=== PATIENT | female | born 1955 | race Caucasian/White ===

== ENCOUNTER 2019-11-17 12:17 | Outpatient (CLI) | payer OTHER, SELFPAY ==
--- NOTE | ~2019-11-17 | XR_ITS ---
XR chest 2V DATE: 11/17/2019 13:09 INDICATION: Cough, fever TECHNIQUE: PA and lateral views COMPARISON: None FINDINGS: Normal heart size. No hilar or mediastinal enlargement. Calcified pulmonary granuloma at th e lateral right lung base. No pulmonary infiltrate or consolidation, pleural effusion or pulmonary va scular congestion or pneumothorax. Diffuse idiopathic skeletal hyperostosis of the mid to lower thoracic spine. IMPRESSION: No active cardiopulmonary disease Reviewed, dictated and finalized at location A. OP JAVA DEVELOPER
== END 2019-11-17 12:18 | disposition home or self-care (01) ==
DX: J40 Bronchitis, not specified as acute or chronic (principal)
CPT/HCPCS: 71046

== ENCOUNTER 2020-08-21 12:32 | Emergency (ER) | payer MEDICARE, SELFPAY ==
[2020-08-21] VITALS (9 sets, daily range): BP systolic 105–130; BP diastolic 47–82; PULSE 72–81; RESP 15–20; TEMP 36.8; O2SAT 97–99
--- NOTE | ~2020-08-21 | XR_ITS ---
EXAMINATION: XR chest 2V EXAM DATE: 08/21/2020 13:10 INDICATION: shortness of breath since last evening, HX Copd, emphysema . TECHNIQUE: Frontal and lateral projections of the chest obtained and reviewed. Comparison is made to prior examination from 11/17/2019. FINDINGS: Several calcified granulomata. The lungs are otherwise clear. There are no pleural effusio ns. Cardiac silhouette is prominent but magnified on this AP technique. There is no pneumothorax s uspected. There are bony degenerative changes. IMPRESSION: No acute cardiopulmonary findings. Reviewed, dictated and finalized at location B. RGRADUATE INTERN
--- NOTE | 2020-08-21 12:55 | ECG_ITS ---
Measurements Intervals [place] Rate: 72 P: 39 CO: 171 QRS: -6 QRSD: 80 T: 33 QT: 408 QTc: 448 Interpretive Statements SINUS RHYTHM LOW QRS VOLTAGE IN PRECORDIAL LEADS BASELINE ARTIFACT- I, III, AVL, AVF BORDERLINE ECG Electronically Signed On 08-21-2020 14:08:15 [employer] LIFT TRIMMER by Todd Sullivan D.O.
--- NOTE | 2020-08-21 13:03 | ED.SOB ---
HPI - SOB/Dyspnea General Chief Complaint: Shortness of Breath/Dyspnea Stated Complaint: sob Time Seen by Provider: 08/21/20 12:55 Source: patient History of Present Illness HPI Narrative: 65-year-old female presents to emergency department for shortness of breath that she noticed yesterday. Patient is unsure if she has felt short of breath like this in the past before. She has tried her CPAP machine at home to help. Patient states shortness of breath is worse when laying flat. No fever or chills. No chest pain. No abdominal pain. No nausea or vomiting. Related Data Allergies Allergy/AdvReac Type Severity Reaction Status Date / Time No Known Allergies Allergy Verified 08/21/20 13:18 Review of Systems Review of Systems: Narrative: CONSTITUTIONAL: Denies fever, chills, or sweats. EYES: Denies visual changes, redness, or discharge. ENT: Denies rhinorrhea, congestion, sore throat, or otalgia. CARDIOVASCULAR: Denies chest pain, palpitations, or edema. RESPIRATORY: Reports shortness of breath GASTROINTESTINAL: Denies abdominal pain, nausea, vomiting, or diarrhea. GENITOURINARY: Denies dysuria or hematuria. SKIN: Denies rash or itching. MUSCULOSKELETAL: Denies back pain, joint pain, or myalgia. NEUROLOGIC: Denies headache, numbness, dizziness, or weakness. PSYCHIATRIC: Denies anxiety or depression. All systems reviewed & are unremarkable except as noted in HPI and below (ROS) PMFSH Social History Social History Gender identity (if verbalized by the patient): Female Exam Narrative: Exam Narrative: GENERAL: Well-appearing, well-nourished, and in no acute distress. HEAD: Normocephalic, atraumatic. EYES: PERRLA and EOMI. ENT: Nares clear, no rhinorrhea or epistaxis. Mucous membranes moist. NECK: Supple. CHEST: Clear to auscultation. Decreased breath sounds bilaterally HEART: Regular rate and rhythm. No murmur heard. Normal peripheral pulses. ABDOMEN: Soft, nontender, nondistended, normal active bowel sounds. EXTREMITIES: Normal range of motion. No edema. SKIN: Warm, dry, no rash. NEURO: No focal deficits. Alert and oriented x3. PSYCH: Normal mood and affect. Course Reevaluation(s) Reevaluation #1: 15:50 -reevaluated patient, breathing improved after breathing treatments. Will treat for COPD exacerbation. Counseled patient to follow-up with her medical provider within 1 week. Return to emergency department if symptoms persist, worsen, or other concerns Vital Signs Vital signs: Vital Signs Pulse Rate 75 08/21/20 12:44 Respiratory Rate 20 08/21/20 12:44 Blood Pressure 126/64 08/21/20 12:44 Pulse Oximetry 97 08/21/20 12:44 Temperature 36.8 C 08/21/20 12:55 Pulse Rate 73 08/21/20 16:07 Respiratory Rate 18 08/21/20 16:07 Blood Pressure 105/47 L 08/21/20 16:07 Pulse Oximetry 97 08/21/20 16:07 MDM - SOB/Dyspnea Medical Records Attestation: I reviewed the patient's medical records. Lab Data Attestation: I reviewed the patient's lab results. Result diagrams: 08/21/20 12:57 08/21/20 12:57 Labs: Lab Results 08/21/20 08/21/20 08/21/20 Range/Units 12:57 12:57 12:57 WBC 5.8 (4.5-10.0) K/mm3 RBC 4.74 (4.2-5.4) M/mm3 Hgb 14.5 (12.0-15.0) g/dL Hct 43.0 (37.0-47.0) % MCV 90.7 (80-100) fl MCH 30.6 (26-34) pg MCHC 33.7 (32-36) g/dl RDW 14.5 (11.5-14.5) % Plt Count 101 L (150-375) k/mm3 MPV 11.6 H (7.4-10.4) fl Immature Gran % (Auto) 0.2 (0-0.5) % Neut % (Auto) 72.3 (45.5-73.1) % Lymph % (Auto) 17.6 L (18.3-44.2) % [place] % (Auto) 7.4 (2.6-8.5) % Eos % (Auto) 2.2 (0-4.4) % Baso % (Auto) 0.3 (0.2-1.2) % Lymph # (Auto) 1.02 (0.9-3.2) K/mm3 [place] # (Auto) 0.4 (0.1-0.6) K/mm3 Eos # (Auto) 0.1 (0-0.3) K/mm3 Baso # (Auto) 0.0 (0.0-0.1) K/mm3 Abs Immat Gran (auto) 0.01 (0.00-0.031) K/mm3 Absolute Neuts (auto
[2020-08-21 13:06] LABS: Basophils Percent Auto 0.3 % (0.2-1.2); Eosinophils Absolute Auto 0.1 K/mm3 (0-0.3); Eosinophils Percent Auto 2.2 % (0-4.4); Hemoglobin 14.5 g/dL (12.0-15.0); Immature Granulocyte Absolute 0.01 K/mm3 (0.00-0.031); Immature Granulocyte Percent A 0.2 % (0-0.5); Immature Platelet Fraction Pct 6.5 % (0.9-11.2); Lymphocytes Absolute Auto 1.02 K/mm3 (0.9-3.2); Lymphocytes Percent Auto 17.6 % (18.3-44.2); Mean Corpuscular HGB Conc 33.7 g/dl (32-36); Mean Corpuscular Hemoglobin 30.6 pg (26-34); Mean Corpuscular Volume 90.7 fl (80-100); Mean Platelet Volume 11.6 fl (7.4-10.4); Monocytes Absolute Auto 0.4 K/mm3 (0.1-0.6); Monocytes Percent Auto 7.4 % (2.6-8.5); Neutrophils Absolute Auto 4.2 K/mm3 (1.3-6.7); Neutrophils Percent Auto 72.3 % (45.5-73.1); Platelet Count Result 101 k/mm3 (150-375); Red Blood Count 4.74 M/mm3 (4.2-5.4); Red Cell Distribution Width 14.5 % (11.5-14.5); White Blood Count 5.8 K/mm3 (4.5-10.0)
[2020-08-21] MEDS: ALBUTEROL SULFATE NEB 2.5 MG/0.5 ML INH 5 MG INHALATION (13:17)
[2020-08-21 13:18] LABS: Anion Gap 9 mmol/L (8-16); Blood Urea Nitrogen 30 mg/dL (7-17); Calcium 9.4 mg/dL (8.4-10.2); Carbon Dioxide 29 mmol/L (22-30); Chloride 101 mmol/L (98-107); Estimated CRCL calculation 52 ml/min; Estimated Glomerular Filt Rate 41; Glucose 228 mg/dL (65-105); Potassium 3.7 mmol/L (3.4-5.0); Sodium 139 mmol/L (137-145)
[2020-08-21] MEDS: IPRATROPIUM BR 0.02% INH SOLN 0.5 MG/2.5 ML VIAL INHALATION (13:18)
[2020-08-21 13:43] LABS: Alanine Aminotransferase 32 U/L (4-35); Albumin Level 3.9 g/dL (3.5-5.1); Alkaline Phosphatase 109 U/L (38-126); Aspartate Amino Transferase 36 U/L (14-36); Bilirubin,Total 0.9 mg/dL (0.2-1.3)
--- NOTE | 2020-08-21 13:49 | PC.NURSE ---
Pt and state they cannot remember the medications that she is on at this time.
[2020-08-21 13:55] LABS: NT Pro B Type Natriuretic Pept 279 PG/ML (5-100); Troponin I < 0.012 ng/mL (0.000-0.034)
--- NOTE | 2020-08-21 14:32 | PC.NURSE ---
Pt up to bathroom to void. Pt states that she's feeling better and less short of breath after the breathing treatment.
[2020-08-21] MEDS: ALBUTEROL SULFATE NEB 2.5 MG/3 ML INH 1.25 MG INHALATION (15:20)
[2020-08-21] MEDS: methylPREDNISolone SOD SUCC 40 MG VIAL 80 MG IV PUSH (16:13)
== END 2020-08-21 16:20 | disposition home or self-care (01) ==
PROVIDERS: General Practice; Emergency Provider Emergency Medicine
DX: J44.9 Chronic obstructive pulmonary disease, unspecified (principal); R94.31 Abnormal electrocardiogram [ECG] [EKG]
CPT/HCPCS: 36415; 71046; 80048; 80076; 83880; 84484; 85025; 85055; 93005; 94640; 96374; 99284; J2920

== ENCOUNTER 2020-09-04 11:59 | Outpatient (CLI) | payer MEDICARE, SELFPAY ==
[2020-09-04 13:04] LABS: Alanine Aminotransferase 36 U/L (4-35); Albumin Level 3.4 g/dL (3.5-5.1); Alkaline Phosphatase 106 U/L (38-126); Anion Gap 3 mmol/L (8-16); Aspartate Amino Transferase 36 U/L (14-36); Bilirubin,Total 0.7 mg/dL (0.2-1.3); Blood Urea Nitrogen 20 mg/dL (7-17); Calcium 9.2 mg/dL (8.4-10.2); Carbon Dioxide 33 mmol/L (22-30); Chloride 104 mmol/L (98-107); Estimated Glomerular Filt Rate 41; Glucose 357 mg/dL (65-105); Potassium 4.3 mmol/L (3.4-5.0); Sodium 140 mmol/L (137-145); Uric Acid 6.6 mg/dL (2.5-7.5)
== END 2020-09-04 12:00 | disposition home or self-care (01) ==
PROVIDERS: Visit Provider Podiatrist Foot & Ankle Surgery
DX: M10.9 Gout, unspecified (principal)
CPT/HCPCS: 36415; 80053; 84550

== ENCOUNTER 2021-04-04 21:54 | Observation (INO) | payer MEDICARE, SELFPAY ==
--- NOTE | ~2021-04-04 | XR_ITS ---
EXAMINATION: XR femur LT min 2V, XR hip RT 2V w AP pelvis DATE: 04/05/2021 13:24 INDICATION: Right hip and left femur pain post recent surgery. TECHNIQUE: 1. Anteroposterior view of the pelvis and anteroposterior and frog-leg lateral views of the right hip were obtained. 2. AP and lateral views of the left femur were obtained on overlapping proximal and distal radiograph s. COMPARISON: None. FINDINGS: Left femur: Oblique subtrochanteric fracture of the proximal left femur with recent postoperative changes of ante grade intramedullary fabiola fixation with interlocking femoral neck screw and a pair of lateral to media l directed interlocking screws at the distal femur. There skin demetrius overlying the screws at the la teral aspect of the proximal distal left thigh. Alignment is near-anatomic. Mild left hip osteoarthri tis. Joint spaces at the left knee appear normal on nonweightbearing imaging. No left knee joint effu lauro. Right hip and pelvis: Alignment is normal. No fracture aside from the previous noted proximal left femoral fracture. Relati vely symmetric mild osteoarthritis at the right hip. No suspected avascular necrosis. Right sacral ne rve root stimulator with lead projecting over the neural foramina the right sacral ala mild to modera te lower lumbar spondylosis. A few additional skin demetrius projecting over the left lower quadrant.. IMPRESSION: 1. Subtrochanteric fracture of the proximal left femur with internal fixation and in near anatomic al ignment. 2. Mild osteoarthritis at the bilateral hips. Reviewed, dictated and finalized at location A. IMPRESSION: 1. Subtrochanteric fracture of the proximal left femur with internal fixation a nd in near anatomic alignment. 2. Mild osteoarthritis at the bilateral hips.
[2021-04-04 22:02] VITALS: PULSE 75; RESP 18; TEMP 36.9; O2SAT 98
[2021-04-04 23:14] LABS: Basophils Absolute Auto 0.1 K/mm3 (0.0-0.1); Basophils Percent Auto 0.6 % (0.2-1.2); Eosinophils Absolute Auto 0.1 K/mm3 (0-0.3); Eosinophils Percent Auto 1.4 % (0-4.4); Hemoglobin 11.4 g/dL (12.0-15.0); Immature Granulocyte Absolute 0.25 K/mm3 (0.00-0.031); Immature Granulocyte Percent A 3.2 % (0-0.5); Immature Platelet Fraction Pct 4.5 % (0.9-11.2); Lymphocytes Percent Auto 16.6 % (18.3-44.2); Mean Corpuscular HGB Conc 31.7 g/dl (32-36); Mean Corpuscular Volume 101.1 fl (80-100); Mean Platelet Volume 10.4 fl (7.4-10.4); Monocytes Absolute Auto 0.9 K/mm3 (0.1-0.6); Monocytes Percent Auto 11.7 % (2.6-8.5); Neutrophils Absolute Auto 5.2 K/mm3 (1.3-6.7); Neutrophils Percent Auto 66.5 % (45.5-73.1); Nucleated Red Blood Cells Perc 0.4 % (0.0-0.2); Platelet Count Result 178 k/mm3 (150-375); Red Blood Count 3.56 M/mm3 (4.2-5.4); Red Cell Distribution Width 17.1 % (11.5-14.5); White Blood Count 7.8 K/mm3 (4.5-10.0)
[2021-04-04 23:18] LABS: Add Urine Microscopic? YES; Appearance Urine Cloudy (Clear); Bacteria Urine Trace /hpf; Bilirubin Urine Negative (Negative); Blood Urine 2+ (Negative); Color Urine Yellow (Yellow); Glucose Urine UA 2+ mg/dL (Negative); Ketones Urine Negative (Negative); Leukocyte Esterase Ur 2+ LEU/UL (Negative); Mucus Urine Rare /lpf; Nitrate Urine Negative (Negative); Protein Urine Negative (Negative); Specific Grav Ur 1.008 (1.001-1.035); Squamous Epithelial Cell Urine Many /hpf (Few); Urobilinogen Urine Negative mg/dL (<2.0); WBC Urine 31-50 /hpf
[2021-04-04 23:21] LABS: Alanine Aminotransferase 15 U/L (4-35); Albumin Level 3.2 g/dL (3.5-5.1); Alkaline Phosphatase 105 U/L (38-126); Anion Gap 8 mmol/L (8-16); Aspartate Amino Transferase 34 U/L (14-36); Bilirubin,Total 1.2 mg/dL (0.2-1.3); Blood Urea Nitrogen 22 mg/dL (7-17); Calcium 9.7 mg/dL (8.4-10.2); Carbon Dioxide 24 mmol/L (22-30); Chloride 105 mmol/L (98-107); Estimated CRCL calculation 48 ml/min; Estimated Glomerular Filt Rate 35; Glucose 167 mg/dL (65-105); Potassium 4.6 mmol/L (3.4-5.0); Sodium 137 mmol/L (137-145)
--- NOTE | 2021-04-04 23:31 | PC.NURSE ---
son at bedside, I explained to them that If we did not have a medical reason to admit the patient she would need to be discharged. son stated you have a duty to take care of her, i am leaving
[2021-04-04 23:40] VITALS: BP 113/56; PULSE 72; RESP 18
--- NOTE | 2021-04-04 23:43 | ED.GENADULT ---
HPI - General Adult General Chief complaint: Unspecified Stated complaint: bed sores Time Seen by Provider: 04/04/21 22:12 History of Present Illness HPI narrative: Patient is 65-year-old female who presents the emergency department with chief complaint of wants medical screening exam. Patient reports that she had a hip fracture on the left side and had surgery at [facility] the patient was discharged to a local jail for rehab and the patient reports today she was unable to get up out of the bed and urinated on herself. The patient states that she was calling for the staff and they were not responding to her and ultimately she called her family and had them remove her from the jail. The patient presents to our facility requesting to be placed in a new jail the patient states she is also concerned that she may have a new bedsore because she laid in urine all day. Related Data Home Medications Medication Instructions Recorded Confirmed budesonide-formoterol 2 puff INHALATION 04/04/21 cyclobenzaprine 5 mg PO TID 04/04/21 dapagliflozin [Farxiga] 5 mg PO DAILY 04/04/21 escitalopram oxalate 20 mg PO DAILY 04/04/21 esomeprazole magnesium 40 mg PO DAILY 04/04/21 gabapentin 200 mg PO TID 04/04/21 insulin glargine [Lantus Solostar 60 SUBCUT 04/04/21 U-100 Insulin] lactulose 30 ml PO BID 04/04/21 nadolol 20 mg PO DAILY 04/04/21 oxycodone 5 mg PO Q4-5H PRN 04/04/21 rifaximin [Xifaxan] 550 mg PO BID 04/04/21 ropinirole 1 mg PO BID 04/04/21 simvastatin 20 mg PO DAILY 04/04/21 spironolactone 100 mg PO DAILY 04/04/21 torsemide 20 mg PO DAILY 04/04/21 ursodiol 400 mg PO TID 04/04/21 warfarin 3 mg PO 3XW 04/04/21 warfarin 4 mg PO 4XW 04/04/21 Allergies Allergy/AdvReac Type Severity Reaction Status Date / Time No Known Allergies Allergy Verified 04/04/21 22:11 Review of Systems Review of Systems: Narrative: A 10 system review of systems was completed on the patient and is negative except for what is stated in the HPI. Nursing and ancillary documentation was reviewed. [facility] Social History Social History Gender identity (if verbalized by the patient): Female Exam Narrative: Exam Narrative: GENERAL: Well-appearing, well-nourished, and in no acute distress. HEAD: Normocephalic, atraumatic. EYES: PERRLA and EOMI. ENT: Nares clear, no rhinorrhea or epistaxis. Mucous membranes moist. NECK: Supple. CHEST: Clear to auscultation. No respiratory distress. HEART: Regular rate and rhythm. No murmur heard. Normal peripheral pulses. ABDOMEN: Soft, nontender, nondistended, normal active bowel sounds. EXTREMITIES: Normal range of motion. No edema. There are demetrius present in the left thigh with healing incisions : There is no signs of decubitus ulcer present SKIN: Warm, dry, no rash. NEURO: No focal deficits. Alert and oriented x3. PSYCH: Normal mood and affect. Course Vital Signs Vital signs: Vital Signs Temperature 36.9 C 04/04/21 22:02 Pulse Rate 75 04/04/21 22:02 Respiratory Rate 18 04/04/21 22:02 Pulse Oximetry 98 04/04/21 22:02 Temperature 36.9 C 04/04/21 22:02 Pulse Rate 75 04/04/21 22:02 Respiratory Rate 18 04/04/21 22:02 Pulse Oximetry 98 04/04/21 22:02 Medical Decision Making Vital Signs Vital Signs: Vital Signs Temperature 36.9 C 04/04/21 22:02 Pulse Rate 75 04/04/21 22:02 Respiratory Rate 18 04/04/21 22:02 Pulse Oximetry 98 04/04/21 22:02 Temperature 36.9 C 04/04/21 22:02 Pulse Rate 75 04/04/21 22:02 Respiratory Rate 18 04/04/21 22:02 Pulse Oximetry 98 04/04/21 22:02 Lab Data Result diagrams: 04/04/21 22:58 04/04/21 22:58 Labs: Lab Results 04/04/21 04/04/21 04/04/21 Range/Units 22:58 22:58 23:00 WBC 7.8 (4.5-10.0) K/mm3 RBC 3.56 L (4.2-5.4) M/mm3 Hgb 11.4 L D (12.0-15.0) g/dL Hct 3
[2021-04-05] VITALS (7 sets, daily range): BP systolic 100–120; BP diastolic 49–62; PULSE 68–76; RESP 16–18; TEMP 35.9–36.2; O2SAT 94–98
--- NOTE | 2021-04-05 00:30 | PC.NURSE ---
Pt rolls self to side and bedpan placed. No difficulties. Pt voids and is cleaned up.
--- NOTE | 2021-04-05 01:15 | ADMGEN ---
This patient, Rebekah Hunt, was admitted to Medical Room 344-01. Patient/family oriented to hospital policies and general routines including ID bracelet, bed and alarms, visiting hours, pain management, procedures, bathroom and other care routines, personal items, smoking policy, room service/diet, and visiting hours. Information on how to activate the Rapid Response Team has been discussed. Patient/Family are encouraged to report perceived risks to care and to ask questions if they do not understand what they are told or what they should do.
--- NOTE | 2021-04-05 08:56 | PM.IMHP ---
H&P: HPI History of Present Illness Date/Time: 04/05/21 08:56 Chief Complaint: weakness, left hip fracture Narrative: Patient is 65-year-old female who presents the emergency department with chief complaint of not beig able to get up ad needing o switch correction. she had a fall and sustained left hip fracture for which she was at [facility] and underwent surgery. she states she recovered well after the surgery and was up and about. She was sent to correction for rehabilitation. She has not been up since being in the facility and was feelign weak. She needed to go pee yesterday but was not able to get up and called for help but noone came. she peeds all over herrself. She then called her family and got removed out of that nursing faciltiy. She is planning to go to a [facility] facility. she denies any fever, chills. she reports pain in her left hip where the surgery was done. she does report some burniing when ever she pees. PMH: diabetes, htn, hlp. periphera neuropathy, chroic back pain, PSH: breast surgery, recent left hip sugery Review of Systems Review of Systems: Narrative: - CONSTITUTIONAL: Denies weight loss, fever and chills. - HEENT: Denies changes in vision and hearing - RESPIRATORY: Denies SOB and cough. - CV: Denies palpitations and CP. - GI: Denies abdominal pain, nausea, vomiting and diarrhea. - : reports dysuria and urinary frequency. - MSK: Denies myalgia and joint pain. - SKIN: Denies rash and pruritus. - NEUROLOGICAL: Denies headache and syncope. - PSYCHIATRIC: Denies recent changes in mood. Denies anxiety and depression. All systems reviewed & are unremarkable except as noted in HPI and below Constitutional: Constitutional: Reports fatigue and Reports weakness Neurologic: Reports weakness Endocrine: Endocrine: Reports fatigue [facility] Family History Family History (Updated 04/05/21 @ 05:13 by Britany Iraheta RN) Mother Diabetes mellitus Hypertension Breast cancer Father Diabetes mellitus Malignant neoplasm of prostate Sibling Diabetes mellitus Hypertension Sibling Diabetes mellitus Hypertension Social History Social History Smoking status: Never smoker Second hand tobacco smoke exposure: Yes Alcohol intake: never Substance use: never Gender identity (if verbalized by the patient): Female Sexual Orientation (if Verbalized by the Patient): Straight or Heterosexual Spiritual care concerns: No Meds Home Medications and Allergies Home Medications Medication Instructions Recorded Confirmed Type budesonide-formoterol 2 puff INHALATION BID 04/04/21 04/05/21 History cyclobenzaprine 5 mg PO TID PRN 04/04/21 04/05/21 History dapagliflozin [Farxiga] 5 mg PO DAILY 04/04/21 04/05/21 History escitalopram oxalate 20 mg PO DAILY 04/04/21 04/05/21 History esomeprazole magnesium 40 mg PO DAILY 04/04/21 04/05/21 History gabapentin 200 mg PO TID 04/04/21 04/05/21 History insulin glargine [Lantus Solostar 60 unit SUBCUT BID 04/04/21 04/05/21 History U-100 Insulin] lactulose 30 ml PO BID 04/04/21 04/05/21 History oxycodone 10 mg PO Q4-5H PRN 04/04/21 04/05/21 History rifaximin [Xifaxan] 550 mg PO BID 04/04/21 04/05/21 History ropinirole 1 mg PO BID 04/04/21 04/05/21 History simvastatin 20 mg PO DAILY 04/04/21 04/05/21 History spironolactone 100 mg PO DAILY 04/04/21 04/05/21 History torsemide 20 mg PO DAILY 04/04/21 04/05/21 History ursodiol 500 mg PO TID 04/04/21 04/05/21 History warfarin See Rx Instructions .ROUTE .COMPLEX 04/04/21 04/05/21 History warfarin See Rx Instructions .ROUTE .COMPLEX 04/04/21 04/05/21 History acetaminophen 1,000 mg PO TID 04/05/21 04/05/21 History azelastine 2 spray INTRANASAL BID 04/05/21 04/05/21 History calcipotriene [Dovonex] 1 applic TOPICAL PRN PRN 04/05/21 04/05/21 History calcium carbonate 400 mg PO TID 04/05/21 04/05/21 History cholecalciferol (vitamin D3) 50 mc
[2021-04-05 09:36] LABS: Glucose Point of Care 199 mg/dl (65-105)
[2021-04-05] MEDS: INSULIN GLARGINE (*BKC) 100 UNITS/ML 60 UNITS SUB-Q (10:05)
[2021-04-05] MEDS: rOPINIRole HCL 1 MG TABLET PO ×2 (10:06→20:55)
[2021-04-05] MEDS: PANTOPRAZOLE 40 MG TABLET PO (10:07)
[2021-04-05] MEDS: AZELASTINE HCL NASAL 0.1% 137 MCG/SPR 30 ML BTL 2 SPRAY NASAL ×2 (10:09→20:55)
[2021-04-05] MEDS: polyethylene glycoL 3350 17 GM POWD.PACK PO (10:17)
[2021-04-05] MEDS: SPIRONOLACTONE 50 MG TABLET 100 MG PO (10:17)
[2021-04-05] MEDS: rifAXIMin 550 MG TABLET PO ×2 (10:18→18:25)
[2021-04-05] MEDS: nadoloL 20 MG TABLET PO (10:18)
[2021-04-05] MEDS: CHOLECALCIFEROL 1,000 UNITS TABLET 2000 UNITS PO (10:18)
[2021-04-05] MEDS: ESCITALOPRAM OXALATE 10 MG TABLET 20 MG PO (10:19)
[2021-04-05] MEDS: TORSEMIDE 20 MG TABLET PO (10:19)
[2021-04-05] MEDS: SIMVASTATIN 20 MG TABLET PO (10:19)
[2021-04-05 11:09] LABS: INR 1.4; Prothrombin Time 17.7 Seconds (11.1-14.7)
[2021-04-05] MEDS: CALCIUM CARBONATE (TUMS) 500 MG (200 MG ELEMENTAL) 400 MG PO ×2 (12:33→18:21)
[2021-04-05] MEDS: INSULIN ASPART (*BKC) 100 UNITS/ML 30 UNITS SUB-Q (12:33)
[2021-04-05] MEDS: ACETAMINOPHEN 500 MG TABLET 1000 MG PO ×2 (12:33→18:21)
--- NOTE | 2021-04-05 14:39 | PC.NURSE ---
On 04/05/21, the student, [ Bernadine Navarro], provided care and completed [facility] documentation on this patient. I have reviewed the student's documentation and agree with the findings.
--- NOTE | 2021-04-05 14:40 | PC.NURSE ---
On 04/05/21, the student, [Scarlet Prince ], provided care and completed [facility] documentation on this patient. I have reviewed the student's documentation and agree with the findings.
[2021-04-05] MEDS: GABAPENTIN 100 MG CAPSULE 200 MG PO ×2 (15:00→21:00)
[2021-04-05 17:07] LABS: Glucose Point of Care 123 mg/dl (65-105)
[2021-04-05] MEDS: LACTULOSE 20 GM/30 ML UDC PO (18:25)
[2021-04-05] MEDS: FERROUS SULFATE 324 MG TABLET PO (18:25)
[2021-04-05] MEDS: WARFARIN (*PBKC) 3 MG TABLET PO (18:25)
[2021-04-05] MEDS: HYDROcodone/acetaminophen (*CRX) 10-325 MG TABLET 1 TAB PO (18:46)
[2021-04-05 20:23] LABS: Glucose Point of Care 258 mg/dl (65-105)
[2021-04-06] MEDS: HYDROcodone/acetaminophen (*CRX) 10-325 MG TABLET 1 TAB PO ×4 (02:36→20:38)
[2021-04-06 05:30] VITALS: BP 110/52; PULSE 72; RESP 18; TEMP 36.1; O2SAT 97
[2021-04-06] MEDS: GABAPENTIN 100 MG CAPSULE 200 MG PO ×3 (05:44→21:41)
[2021-04-06] MEDS: rOPINIRole HCL 1 MG TABLET PO ×2 (08:37→20:37)
[2021-04-06] MEDS: SPIRONOLACTONE 50 MG TABLET 100 MG PO (08:37)
[2021-04-06] MEDS: SIMVASTATIN 20 MG TABLET PO (08:37)
[2021-04-06] MEDS: rifAXIMin 550 MG TABLET PO ×2 (08:37→17:08)
[2021-04-06] MEDS: ESCITALOPRAM OXALATE 10 MG TABLET 20 MG PO (08:37)
[2021-04-06] MEDS: TORSEMIDE 20 MG TABLET PO (08:37)
[2021-04-06 08:38] VITALS: PULSE 72
[2021-04-06] MEDS: AZELASTINE HCL NASAL 0.1% 137 MCG/SPR 30 ML BTL 2 SPRAY NASAL ×2 (08:38→20:40)
[2021-04-06] MEDS: CHOLECALCIFEROL 1,000 UNITS TABLET 2000 UNITS PO (08:38)
[2021-04-06] MEDS: CALCIUM CARBONATE (TUMS) 500 MG (200 MG ELEMENTAL) 400 MG PO ×3 (08:38→17:07)
[2021-04-06] MEDS: nadoloL 20 MG TABLET PO (08:38)
[2021-04-06] MEDS: FERROUS SULFATE 324 MG TABLET PO ×2 (08:39→17:08)
[2021-04-06] MEDS: PANTOPRAZOLE 40 MG TABLET PO (08:39)
[2021-04-06] MEDS: LACTULOSE 20 GM/30 ML UDC PO ×2 (08:39→17:08)
[2021-04-06] MEDS: INSULIN GLARGINE (*BKC) 100 UNITS/ML 60 UNITS SUB-Q (08:44)
[2021-04-06 09:36] LABS: INR 1.5; Prothrombin Time 18.7 Seconds (11.1-14.7)
--- NOTE | 2021-04-06 09:52 | PCPTNOTE ---
Patient refused treatment this session due to severe pain stating it was 9-10 and wanted a pain pill before movements. Nurses aide in room stated she will let the nurse know and will attempt patient after receiving medication.
[2021-04-06 10:50] LABS: Glucose Point of Care 128 mg/dl (65-105)
[2021-04-06 12:55] LABS: Glucose Point of Care 254 mg/dl (65-105)
[2021-04-06] MEDS: INSULIN ASPART (*BKC) 100 UNITS/ML SUB-Q ×2 (13:18→17:08)
[2021-04-06 14:00] VITALS: BP 92/52; PULSE 72; RESP 16; TEMP 36.7; O2SAT 100
--- NOTE | 2021-04-06 14:10 | PM.IMPN ---
Progress Note: A&P Assessment and Plan (1) Generalized weakness: Code(s): R53.1 - Weakness Status: Acute (2) Physical deconditioning: Code(s): R53.81 - Other malaise Status: Acute (3) Hyperlipidemia: Code(s): E78.5 - Hyperlipidemia, unspecified Status: Acute (4) Hypertension: Code(s): I10 - Essential (primary) hypertension Status: Acute (5) correction current use of anticoagulant: Code(s): Z79.01 - long term care social worker (current) use of anticoagulants Status: Acute (6) Factor V Leiden: Code(s): D68.51 - Activated protein C resistance Status: Acute (7) Chronic deep vein thrombosis (DVT): Code(s): I82.509 - Chronic embolism and thrombosis of unspecified deep veins of unspecified lower extremity Status: Acute (8) Hx of breast cancer: Code(s): Z85.3 - Personal history of malignant neoplasm of breast Status: Acute (9) Type 2 diabetes mellitus with diabetic neuropathy: Code(s): E11.40 - Type 2 diabetes mellitus with diabetic neuropathy, unspecified Status: Acute Additional Plan # generalised weakness: likely physical deconditioning from recet surgery. she does have evdience of uti which will be treated. PT/OT to see. rolo for futher rehabilitation # Status post recent left hip surgery for traumatic left hip fracutre. fu with ortho as previously planned. X-rays of her left hip and femur with stable hardware # UTI: rocpehin. Follow urine culture. # Chronic back pain: on norco at home. will resume this. Hydrocodone not controlling her pain medication, used to be on oxycodone but makes her loopy. Will increase the dose of hydrocodone for now and see how she does # Dm2 on insulin. resum ehome medicatiosn. check a1c # GERD: PPI # peripherla neuropathy: gabapentin # hx of dvt, last in 1999, bialteal lower exremity, on coumdin. check inr. Is sub therapeutic at 1.4 she takes 3 mg alternating with 4 mg at home. She was given 3 mg last night. Will increase to 5 mg tonight. Check INR in the morning and monitor daily # correction anticoagulant use. check inr and monitor. resume home dose for now. As is the dose as above # HTN # HLP # Hx of breast cancer s/p surgery/radiation/chemotherapy. left arm with lymphedema relatd to this. # DVT proph: already on coumadin. # code status: full code Subjective Date/time seen: 04/06/21 14:10 Interval history: No overnight events. She reports her pain in her left hip is not well controlled with hydrocodone. She also mentions that oxycodone makes her loopy. No Shortness of breath no nausea vomiting abdominal pain Review of Systems Review of Systems: All systems reviewed & are unremarkable except as noted in HPI and below Constitutional: Constitutional: Reports fatigue and Reports weakness Neurologic: Reports weakness Endocrine: Endocrine: Reports fatigue Exam Narrative: Exam Narrative: GENERAL: Well-appearing, well-nourished, and in no acute distress. HEAD: Normocephalic, atraumatic. EYES: PERRLA and EOMI. ENT: Nares clear, no rhinorrhea or epistaxis. Mucous membranes moist. NECK: Supple. non tender CHEST: Clear to auscultation. No respiratory distress. HEART: Regular rate and rhythm. No murmur heard. Normal peripheral pulses. ABDOMEN: Soft, nontender, nondistended, normal active bowel sounds. EXTREMITIES: Normal range of motion. No edema. There are demetrius present in the left thigh with healing incisions, bruises around her SKIN: Warm, dry, no rash. NEURO: No focal deficits. Alert and oriented x3. PSYCH: Normal mood and affect. Objective Data Vital Signs Vital Signs: Vital Signs - 24 hr 04/05/21 20:01 04/05/21 20:07 04/05/21 20:10 Temperature 97.1 F L Pulse Rate 68 68 Respiratory Rate 16 17 Blood Pressure 100/52 L Pulse Oximetry 94 97 04/06/21 05:30 04/06/21 08:38 Temperature 97 F L Pulse Rate 72 72 Respiratory Rate 18 Blood Pressure 110/52 L Pulse Oxi
[2021-04-06 16:23] LABS: Hemoglobin A1C 7.7 % (<5.7)
[2021-04-06 16:40] LABS: Glucose Point of Care 256 mg/dl (65-105)
[2021-04-06] MEDS: WARFARIN (*PBKC) 5 MG TABLET PO (17:07)
[2021-04-06 20:14] VITALS: O2SAT 95
[2021-04-06 20:20] VITALS: BP 94/42; PULSE 69; RESP 18; TEMP 36.7; O2SAT 96
[2021-04-06 20:25] VITALS: BP 102/56
[2021-04-06 20:28] LABS: Glucose Point of Care 293 mg/dl (65-105)
[2021-04-07] MEDS: HYDROcodone/acetaminophen (*CRX) 10-325 MG TABLET 1 TAB PO ×4 (02:59→20:02)
[2021-04-07] MEDS: GABAPENTIN 100 MG CAPSULE 200 MG PO ×3 (05:07→22:36)
[2021-04-07 05:10] VITALS: BP 104/51; PULSE 69; RESP 18; TEMP 35.6; O2SAT 96
[2021-04-07 05:52] LABS: Basophils Absolute Auto 0.1 K/mm3 (0.0-0.1); Basophils Percent Auto 0.8 % (0.2-1.2); Eosinophils Absolute Auto 0.2 K/mm3 (0-0.3); Eosinophils Percent Auto 1.9 % (0-4.4); Hemoglobin 11.7 g/dL (12.0-15.0); Immature Granulocyte Absolute 0.06 K/mm3 (0.00-0.031); Immature Granulocyte Percent A 0.7 % (0-0.5); Lymphocytes Percent Auto 23.3 % (18.3-44.2); Mean Corpuscular HGB Conc 32.5 g/dl (32-36); Mean Corpuscular Volume 98.4 fl (80-100); Mean Platelet Volume 10.3 fl (7.4-10.4); Monocytes Absolute Auto 0.9 K/mm3 (0.1-0.6); Monocytes Percent Auto 9.9 % (2.6-8.5); Neutrophils Absolute Auto 5.5 K/mm3 (1.3-6.7); Neutrophils Percent Auto 63.4 % (45.5-73.1); Platelet Count Result 201 k/mm3 (150-375); Red Blood Count 3.66 M/mm3 (4.2-5.4); White Blood Count 8.6 K/mm3 (4.5-10.0)
[2021-04-07 06:03] LABS: Anion Gap 7 mmol/L (8-16); Blood Urea Nitrogen 32 mg/dL (7-17); Calcium 9.5 mg/dL (8.4-10.2); Carbon Dioxide 33 mmol/L (22-30); Chloride 99 mmol/L (98-107); Estimated CRCL calculation 48 ml/min; Estimated Glomerular Filt Rate 35; Glucose 151 mg/dL (65-105); Potassium 4.3 mmol/L (3.4-5.0); Sodium 139 mmol/L (137-145)
[2021-04-07 07:14] VITALS: O2SAT 95
[2021-04-07 08:19] LABS: Glucose Point of Care 148 mg/dl (65-105)
[2021-04-07] MEDS: rOPINIRole HCL 1 MG TABLET PO ×2 (09:08→20:03)
[2021-04-07] MEDS: CHOLECALCIFEROL 1,000 UNITS TABLET 2000 UNITS PO (09:08)
[2021-04-07] MEDS: AZELASTINE HCL NASAL 0.1% 137 MCG/SPR 30 ML BTL 2 SPRAY NASAL ×2 (09:08→20:03)
[2021-04-07] MEDS: CALCIUM CARBONATE (TUMS) 500 MG (200 MG ELEMENTAL) 400 MG PO ×3 (09:08→17:50)
[2021-04-07] MEDS: TORSEMIDE 20 MG TABLET PO (09:08)
[2021-04-07] MEDS: ESCITALOPRAM OXALATE 10 MG TABLET 20 MG PO (09:08)
[2021-04-07 09:10] VITALS: PULSE 74
[2021-04-07] MEDS: nadoloL 20 MG TABLET PO (09:10)
[2021-04-07] MEDS: PANTOPRAZOLE 40 MG TABLET PO (09:10)
[2021-04-07] MEDS: rifAXIMin 550 MG TABLET PO ×2 (09:10→17:50)
[2021-04-07] MEDS: LACTULOSE 20 GM/30 ML UDC PO ×2 (09:10→17:50)
[2021-04-07] MEDS: FERROUS SULFATE 324 MG TABLET PO ×2 (09:11→17:50)
[2021-04-07] MEDS: SPIRONOLACTONE 50 MG TABLET 100 MG PO (09:11)
[2021-04-07] MEDS: INSULIN GLARGINE (*BKC) 100 UNITS/ML 60 UNITS SUB-Q (09:12)
[2021-04-07] MEDS: SIMVASTATIN 20 MG TABLET PO (09:12)
[2021-04-07 09:29] LABS: INR 1.9; Prothrombin Time 22.5 Seconds (11.1-14.7)
--- NOTE | 2021-04-07 11:35 | PM.IMPN ---
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 (6) Factor V Leiden: Code(s): D68.51 - Activated protein C resistance Status: Acute Assessment and Plan: Still stable on medication (7) Chronic deep vein thrombosis (DVT): Code(s): I82.509 - Chronic embolism and thrombosis of unspecified deep veins of unspecified lower extremity Status: Acute Assessment and Plan: Stable on medication continue anticoagulation. (8) Hx of breast cancer: Code(s): Z85.3 - Personal history of malignant neoplasm of breast Status: Acute Assessment and Plan: Stable on meds (9) Type 2 diabetes mellitus with diabetic neuropathy: Code(s): E11.40 - Type 2 diabetes mellitus with diabetic neuropathy, unspecified Status: Acute Assessment and Plan: Stable on meds (10) Acute lower UTI: Code(s): N39.0 - Urinary tract infection, site not specified Status: Acute Assessment and Plan: Will continue with IV antibiotics. And switched to p.o. once cultures are back. Additional Plan # generalised weakness: likely physical deconditioning from recet surgery. she does have evdience of uti which will be treated. PT/OT to see. rolo for futher rehabilitation # Status post recent left hip surgery for traumatic left hip fracutre. fu with ortho as previously planned. X-rays of her left hip and femur with stable hardware # UTI: rocpehin. Follow urine culture. # Chronic back pain: on norco at home. will resume this. Hydrocodone not controlling her pain medication, used to be on oxycodone but makes her loopy. Will increase the dose of hydrocodone for now and see how she does # Dm2 on insulin. resum ehome medicatiosn. check a1c # GERD: PPI # peripherla neuropathy: gabapentin # hx of dvt, last in 1999, bialteal lower exremity, on coumdin. check inr. Is sub therapeutic at 1.4 she takes 3 mg alternating with 4 mg at home. She was given 3 mg last night. Will increase to 5 mg tonight. Check INR in the morning and monitor daily # long term care social worker anticoagulant use. check inr and monitor. resume home dose for now. As is the dose as above # HTN # HLP # Hx of breast cancer s/p surgery/radiation/chemotherapy. left arm with lymphedema relatd to this. # DVT proph: already on coumadin. # code status: full code Will continue current plan of care and treatment. Fifty with patient. Patient medically stable. Subjective Date/time seen: 04/07/21 11:35 Patient was seen during the morning rounds today. Patient pain is under control. Patient denies any shortness of breath or chest pain. No abdominal pain, no nausea, no vomiting. Mood stable. Review of Systems Review of Systems: All systems reviewed & are unremarkable except as noted in HPI and below Constitutional: Constitutional: Reports fatigue and Reports weakness Neurologic: Reports weakness Endocrine: Endocrine: Reports fatigue Exam Narrative: Exam Narrative: GENERAL: Well-appearing, well-nourished, and in no acute distress. HEAD: Normocephalic, atraumatic. EYES: PERRLA and EOMI. ENT: Nares clear, no rhinorrhea or epistaxis. Mucous membranes moist. NECK: Supple. non tende
[2021-04-07 11:51] LABS: Glucose Point of Care 286 mg/dl (65-105)
[2021-04-07] MEDS: levoFLOXacin 250 MG TABLET PO (13:00)
[2021-04-07] MEDS: INSULIN ASPART (*BKC) 100 UNITS/ML SUB-Q ×2 (13:01→17:51)
[2021-04-07 14:00] VITALS: BP 88/44; PULSE 74; RESP 18; TEMP 36.2; O2SAT 96
[2021-04-07 17:03] LABS: Glucose Point of Care 295 mg/dl (65-105)
[2021-04-07] MEDS: WARFARIN (*PBKC) 3 MG TABLET PO (17:51)
[2021-04-07 19:51] VITALS: BP 97/50; PULSE 78; RESP 16; TEMP 35.8; O2SAT 92
[2021-04-07 22:42] LABS: Glucose Point of Care 348 mg/dl (65-105)
[2021-04-08 06:00] VITALS: BP 116/51; PULSE 77; RESP 18; TEMP 36.7; O2SAT 96
[2021-04-08] MEDS: HYDROcodone/acetaminophen (*CRX) 10-325 MG TABLET 1 TAB PO ×3 (06:34→18:31)
[2021-04-08] MEDS: GABAPENTIN 100 MG CAPSULE 200 MG PO ×3 (06:34→21:13)
[2021-04-08 07:40] LABS: Glucose Point of Care 182 mg/dl (65-105)
[2021-04-08] MEDS: INSULIN GLARGINE (*BKC) 100 UNITS/ML 60 UNITS SUB-Q (07:50)
[2021-04-08] MEDS: AZELASTINE HCL NASAL 0.1% 137 MCG/SPR 30 ML BTL 2 SPRAY NASAL ×2 (07:57→21:13)
[2021-04-08] MEDS: SPIRONOLACTONE 50 MG TABLET 100 MG PO (07:58)
[2021-04-08] MEDS: CALCIUM CARBONATE (TUMS) 500 MG (200 MG ELEMENTAL) 400 MG PO ×3 (07:58→18:28)
[2021-04-08] MEDS: PANTOPRAZOLE 40 MG TABLET PO (07:58)
[2021-04-08] MEDS: FERROUS SULFATE 324 MG TABLET PO ×2 (07:58→18:28)
[2021-04-08 07:59] VITALS: PULSE 77
[2021-04-08] MEDS: ESCITALOPRAM OXALATE 10 MG TABLET 20 MG PO (07:59)
[2021-04-08] MEDS: CHOLECALCIFEROL 1,000 UNITS TABLET 2000 UNITS PO (07:59)
[2021-04-08] MEDS: rOPINIRole HCL 1 MG TABLET PO ×2 (07:59→21:13)
[2021-04-08] MEDS: nadoloL 20 MG TABLET PO (07:59)
[2021-04-08] MEDS: rifAXIMin 550 MG TABLET PO ×2 (07:59→18:29)
[2021-04-08] MEDS: SIMVASTATIN 20 MG TABLET PO (07:59)
[2021-04-08] MEDS: LACTULOSE 20 GM/30 ML UDC PO ×2 (08:00→18:28)
[2021-04-08] MEDS: TORSEMIDE 20 MG TABLET PO (08:01)
[2021-04-08] MEDS: levoFLOXacin 250 MG TABLET PO (10:14)
[2021-04-08 11:00] LABS: INR 2.5; Prothrombin Time 27.2 Seconds (11.1-14.7)
--- NOTE | 2021-04-08 11:56 | PM.IMPN ---
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 (6) Factor V Leiden: Code(s): D68.51 - Activated protein C resistance Status: Acute Assessment and Plan: Still stable on medication (7) Chronic deep vein thrombosis (DVT): Code(s): I82.509 - Chronic embolism and thrombosis of unspecified deep veins of unspecified lower extremity Status: Acute Assessment and Plan: Stable on medication continue anticoagulation. (8) Hx of breast cancer: Code(s): Z85.3 - Personal history of malignant neoplasm of breast Status: Acute Assessment and Plan: Stable on meds (9) Type 2 diabetes mellitus with diabetic neuropathy: Code(s): E11.40 - Type 2 diabetes mellitus with diabetic neuropathy, unspecified Status: Acute Assessment and Plan: Stable on meds (10) Acute lower UTI: Code(s): N39.0 - Urinary tract infection, site not specified Status: Acute Assessment and Plan: Will continue with IV antibiotics. And switched to p.o. once cultures are back. Additional Plan # generalised weakness: likely physical deconditioning from recet surgery. she does have evdience of uti which will be treated. PT/OT to see. rolo for futher rehabilitation # Status post recent left hip surgery for traumatic left hip fracutre. fu with ortho as previously planned. X-rays of her left hip and femur with stable hardware # UTI: rocpehin. Follow urine culture. # Chronic back pain: on norco at home. will resume this. Hydrocodone not controlling her pain medication, used to be on oxycodone but makes her loopy. Will increase the dose of hydrocodone for now and see how she does # Dm2 on insulin. resum ehome medicatiosn. check a1c # GERD: PPI # peripherla neuropathy: gabapentin # hx of dvt, last in 1999, bialteal lower exremity, on coumdin. check inr. Is sub therapeutic at 1.4 she takes 3 mg alternating with 4 mg at home. She was given 3 mg last night. Will increase to 5 mg tonight. Check INR in the morning and monitor daily # watermelon inspector anticoagulant use. check inr and monitor. resume home dose for now. As is the dose as above # HTN # HLP # Hx of breast cancer s/p surgery/radiation/chemotherapy. left arm with lymphedema relatd to this. # DVT proph: already on coumadin. # code status: full code Will continue current plan of care and treatment.Patient medically stable. 04/08/21: Continue with current plan of care and treatment. Will continue physical therapy. Patient medically stable. Waiting for placement. Subjective Date/time seen: 04/08/21 11:56 Patient was seen during the morning rounds today. Patient is feeling slightly better. Decreased weakness. No shortness of breath or chest pain. No abdominal pain, no nausea, no vomiting. Mood stable. Review of Systems Review of Systems: All systems reviewed & are unremarkable except as noted in HPI and below Constitutional: Constitutional: Reports fatigue and Reports weakness Neurologic: Reports weakness Endocrine: Endocrine: Reports fatigue Exam Narrative: Exam Narrative: GENERAL: Well-appearing, well-nourished, and in no acute distress. HEAD: Normocephalic,
[2021-04-08 12:23] LABS: Glucose Point of Care 341 mg/dl (65-105)
[2021-04-08] MEDS: INSULIN ASPART (*BKC) 100 UNITS/ML SUB-Q ×2 (13:27→17:58)
[2021-04-08 14:00] VITALS: BP 117/78; PULSE 75; RESP 18; TEMP 36.2; O2SAT 97
[2021-04-08 17:29] LABS: Glucose Point of Care 385 mg/dl (65-105)
[2021-04-08] MEDS: WARFARIN (*PBKC) 4 MG TABLET BY MOUTH (18:29)
[2021-04-08 20:24] VITALS: BP 113/48; PULSE 77; RESP 18; TEMP 36.8; O2SAT 98
--- NOTE | 2021-04-08 21:26 | PC.NURSE ---
patient's blood sugar is 462 tonight, called Jaky Panchal and she ordered a one time dose of novolog
[2021-04-08 21:30] LABS: Glucose Point of Care 462 mg/dl (65-105)
[2021-04-08] MEDS: INSULIN ASPART (*BKC) 100 UNITS/ML 6 UNITS SUB-Q (21:31)
[2021-04-09] MEDS: HYDROcodone/acetaminophen (*CRX) 10-325 MG TABLET 1 TAB PO ×5 (00:30→21:39)
[2021-04-09 05:38] VITALS: BP 112/58; PULSE 78; RESP 16; TEMP 36.8; O2SAT 97
[2021-04-09] MEDS: GABAPENTIN 100 MG CAPSULE 200 MG PO ×3 (06:04→21:39)
[2021-04-09 06:16] LABS: INR 2.3; Prothrombin Time 26.1 Seconds (11.1-14.7)
[2021-04-09 08:05] LABS: Glucose Point of Care 260 mg/dl (65-105)
[2021-04-09 08:45] VITALS: PULSE 78
[2021-04-09] MEDS: nadoloL 20 MG TABLET PO (08:45)
[2021-04-09] MEDS: CALCIUM CARBONATE (TUMS) 500 MG (200 MG ELEMENTAL) 400 MG PO ×3 (08:45→17:00)
[2021-04-09] MEDS: TORSEMIDE 20 MG TABLET PO (08:45)
[2021-04-09] MEDS: SPIRONOLACTONE 50 MG TABLET 100 MG PO (08:45)
[2021-04-09] MEDS: CHOLECALCIFEROL 1,000 UNITS TABLET 2000 UNITS PO (08:46)
[2021-04-09] MEDS: rifAXIMin 550 MG TABLET PO ×2 (08:46→17:01)
[2021-04-09] MEDS: SIMVASTATIN 20 MG TABLET PO (08:46)
[2021-04-09] MEDS: rOPINIRole HCL 1 MG TABLET PO ×2 (08:46→20:12)
[2021-04-09] MEDS: levoFLOXacin 250 MG TABLET PO (08:46)
[2021-04-09] MEDS: ESCITALOPRAM OXALATE 10 MG TABLET 20 MG PO (08:46)
[2021-04-09] MEDS: FERROUS SULFATE 324 MG TABLET PO ×2 (08:46→17:00)
[2021-04-09] MEDS: PANTOPRAZOLE 40 MG TABLET PO (08:46)
[2021-04-09] MEDS: ACETAMINOPHEN 500 MG TABLET 1000 MG PO (08:47)
[2021-04-09] MEDS: LACTULOSE 20 GM/30 ML UDC PO ×2 (08:47→17:00)
[2021-04-09] MEDS: INSULIN ASPART (*BKC) 100 UNITS/ML SUB-Q ×2 (08:49→12:30)
[2021-04-09] MEDS: INSULIN GLARGINE (*BKC) 100 UNITS/ML 60 UNITS SUB-Q (08:50)
[2021-04-09] MEDS: AZELASTINE HCL NASAL 0.1% 137 MCG/SPR 30 ML BTL 2 SPRAY NASAL ×2 (08:55→20:12)
[2021-04-09] MEDS: polyethylene glycoL 3350 17 GM POWD.PACK PO (08:55)
[2021-04-09 09:40] LABS: INR 2.2; Prothrombin Time 25.4 Seconds (11.1-14.7)
[2021-04-09 11:48] LABS: Glucose Point of Care 339 mg/dl (65-105)
--- NOTE | 2021-04-09 11:56 | PM.IMPN ---
Progress Note: A&P Assessment and Plan (1) Acute lower UTI: Code(s): N39.0 - Urinary tract infection, site not specified Status: Acute Assessment and Plan: IV Levaquin (2) Hypertension: Code(s): I10 - Essential (primary) hypertension Status: Acute Assessment and Plan: Monitor vital signs (3) Factor V Leiden: Code(s): D68.51 - Activated protein C resistance Status: Acute (4) Chronic deep vein thrombosis (DVT): Code(s): I82.509 - Chronic embolism and thrombosis of unspecified deep veins of unspecified lower extremity Status: Acute Assessment and Plan: Anticoagulation with Coumadin (5) Type 2 diabetes mellitus with diabetic neuropathy: Code(s): E11.40 - Type 2 diabetes mellitus with diabetic neuropathy, unspecified Status: Acute Assessment and Plan: Monitor blood sugar (6) Generalized weakness: Code(s): R53.1 - Weakness Status: Acute Assessment and Plan: PT OT (7) Physical deconditioning: Code(s): R53.81 - Other malaise Status: Acute Assessment and Plan: Discussed infant caregiver about discharge planning Subjective Date/time seen: 04/09/21 11:56 Patient is resting comfortably no active complaints at this time Exam Const: General: cooperative and no acute distress HENMT: Head: normal to inspection Eyes: General: appearance normal, both eyes and all related structures Neck: Neck: normal visual inspection Chest: Chest palpation & inspection: normal inspection of the chest Resp: Effort & Inspection: normal respiratory effort Cardio: Jugular venous distension: no JVD Rate: regular rate GI: Inspection: normal to inspection and non-distended Objective Data Vital Signs Vital Signs: Vital Signs - 24 hr 04/08/21 14:00 04/08/21 20:24 04/09/21 05:38 Temperature 97.1 F L 98.3 F 98.2 F Pulse Rate 75 77 78 Respiratory Rate 18 18 16 Blood Pressure 117/78 113/48 L 112/58 L Pulse Oximetry 97 98 97 04/09/21 08:45 Temperature Pulse Rate 78 Respiratory Rate Blood Pressure Pulse Oximetry Intake/Output Intake/Output: Intake & Output 04/06/21 04/07/21 04/08/21 04/09/21 23:59 23:59 23:59 23:59 Intake Total 830 1540 2590 520 Output Total 3000 2550 2100 1400 Balance -2170 -1010 490 -880 Meds/Results Medications: Active Medications Generic Name Dose Route Start Last Admin Trade Name Freq PRN Reason Stop Dose Admin Acetaminophen 1,000 mg 04/05/21 13:00 04/09/21 08:47 Acetaminophen 500 Mg Tablet PO 1,000 mg TID MOISES Administration Hydrocodone Bitart/Acetaminophen 1 tab 04/06/21 14:17 04/09/21 06:06 Hydrocodone/Acetaminophen (*Crx) 10-325 Mg Tablet PO 1 tab Q4H PRN Administration Pain Rated 7-10 Azelastine HCl 2 spray 04/05/21 09:00 04/09/21 08:55 Azelastine Hcl Nasal 0.1% 137 Mcg/Spr 30 Ml Btl NASAL 2 spray Q12HR MOISES Administration Budesonide/Formoterol Fumarate 2 puff 04/05/21 20:00 04/08/21 21:22 Budesonide/Form 160-4.5 Mcg (*Sp) INHALATION 2 puff Q12HRT MOISES Administration Calcium Carbonate 400 mg 04/05/21 13:00 04/09/21 08:45 Calcium Carbonate (Tums) 500 Mg (200 Mg Elemental) PO 400 mg TID MOISES Administration Cyclobenzaprine HCl 5 mg 04/05/21 09:17 Cyclobenzaprine Hcl 5 Mg Tablet PO TID PRN Muscle Spasm Dextrose 12.5 gm 04/05/21 17:47 Dextrose 50% 25 Gm/50 Ml Syringe IV PUSH PRN PRN Hypoglycemia Protocol Escitalopram Oxalate 20 mg 04/05/21 09:00 04/09/21 08:46 Escitalopram Oxalate 10 Mg Tablet PO 20 mg DAILY MOISES Administration Ferrous Sulfate 324 mg 04/05/21 17:00 04/09/21 08:46 Ferrous Sulfate 324 Mg Tablet PO 324 mg BIDWM MOISES Administration Gabapentin 200 mg 04/05/21 14:00 04/09/21 06:04 Gabapentin 100 Mg Capsule PO 200 mg Q8HR MOISES Administration Glucagon 1 mg 04/05/21 17:47 Glucagon For Inj 1 Mg Vial IM PRN P
[2021-04-09 14:00] VITALS: BP 102/53; PULSE 73; RESP 18; TEMP 36.8; O2SAT 97
[2021-04-09] MEDS: WARFARIN (*PBKC) 3 MG TABLET PO (17:01)
[2021-04-09 17:08] LABS: Glucose Point of Care 405 mg/dl (65-105)
[2021-04-09] MEDS: INSULIN ASPART (*BKC) 100 UNITS/ML 15 UNITS SUB-Q (17:13)
[2021-04-09 20:09] VITALS: BP 95/43; PULSE 76; RESP 18; TEMP 36.3; O2SAT 94
[2021-04-09 21:53] LABS: Glucose Point of Care 383 mg/dl (65-105)
[2021-04-10] MEDS: HYDROcodone/acetaminophen (*CRX) 10-325 MG TABLET 1 TAB PO ×3 (03:51→15:23)
[2021-04-10] MEDS: GABAPENTIN 100 MG CAPSULE 200 MG PO ×2 (05:44→15:24)
[2021-04-10 05:52] LABS: Basophils Percent Auto 0.5 % (0.2-1.2); Eosinophils Absolute Auto 0.2 K/mm3 (0-0.3); Eosinophils Percent Auto 2.8 % (0-4.4); Hematocrit 34.8 % (37.0-47.0); Hemoglobin 11.3 g/dL (12.0-15.0); Immature Granulocyte Absolute 0.05 K/mm3 (0.00-0.031); Immature Granulocyte Percent A 0.7 % (0-0.5); Lymphocytes Percent Auto 20.4 % (18.3-44.2); Mean Corpuscular HGB Conc 32.5 g/dl (32-36); Mean Corpuscular Hemoglobin 32.4 pg (26-34); Mean Corpuscular Volume 99.7 fl (80-100); Mean Platelet Volume 10.1 fl (7.4-10.4); Monocytes Absolute Auto 0.7 K/mm3 (0.1-0.6); Monocytes Percent Auto 9.5 % (2.6-8.5); Neutrophils Absolute Auto 4.9 K/mm3 (1.3-6.7); Neutrophils Percent Auto 66.1 % (45.5-73.1); Platelet Count Result 195 k/mm3 (150-375); Red Blood Count 3.49 M/mm3 (4.2-5.4); Red Cell Distribution Width 16.4 % (11.5-14.5); White Blood Count 7.4 K/mm3 (4.5-10.0)
[2021-04-10 06:02] LABS: Anion Gap 5 mmol/L (8-16); Blood Urea Nitrogen 36 mg/dL (7-17); Calcium 9.8 mg/dL (8.4-10.2); Carbon Dioxide 33 mmol/L (22-30); Chloride 97 mmol/L (98-107); Estimated CRCL calculation 45 ml/min; Estimated Glomerular Filt Rate 33; Glucose 277 mg/dL (65-105); Potassium 4.7 mmol/L (3.4-5.0); Sodium 135 mmol/L (137-145)
[2021-04-10 06:04] VITALS: BP 96/42; PULSE 67; RESP 18; TEMP 36; O2SAT 100
[2021-04-10 07:17] VITALS: O2SAT 95
[2021-04-10 08:08] LABS: Glucose Point of Care 228 mg/dl (65-105)
[2021-04-10] MEDS: INSULIN ASPART (*BKC) 100 UNITS/ML SUB-Q (08:08)
[2021-04-10] MEDS: TORSEMIDE 20 MG TABLET PO (08:14)
[2021-04-10] MEDS: CHOLECALCIFEROL 1,000 UNITS TABLET 2000 UNITS PO (08:14)
[2021-04-10] MEDS: PANTOPRAZOLE 40 MG TABLET PO (08:14)
[2021-04-10] MEDS: rOPINIRole HCL 1 MG TABLET PO (08:15)
[2021-04-10] MEDS: SPIRONOLACTONE 50 MG TABLET 100 MG PO (08:15)
[2021-04-10] MEDS: FERROUS SULFATE 324 MG TABLET PO (08:16)
[2021-04-10] MEDS: AZELASTINE HCL NASAL 0.1% 137 MCG/SPR 30 ML BTL 2 SPRAY NASAL (08:16)
[2021-04-10] MEDS: CALCIUM CARBONATE (TUMS) 500 MG (200 MG ELEMENTAL) 400 MG PO ×2 (08:16→15:24)
[2021-04-10 08:17] VITALS: PULSE 72
[2021-04-10] MEDS: nadoloL 20 MG TABLET PO (08:17)
[2021-04-10] MEDS: ESCITALOPRAM OXALATE 10 MG TABLET 20 MG PO (08:17)
[2021-04-10] MEDS: LACTULOSE 20 GM/30 ML UDC PO (08:17)
[2021-04-10] MEDS: levoFLOXacin 250 MG TABLET PO (08:18)
[2021-04-10] MEDS: SIMVASTATIN 20 MG TABLET PO (08:18)
[2021-04-10] MEDS: rifAXIMin 550 MG TABLET PO (08:18)
[2021-04-10] MEDS: INSULIN GLARGINE (*BKC) 100 UNITS/ML 60 UNITS SUB-Q (08:37)
--- NOTE | 2021-04-10 11:15 | PM.DS ---
DS: Admitting Diagnosis Admitting Diagnosis Admitting Diagnosis: Weakness DS: Discharge Diagnosis Discharge Diagnosis (1) Acute lower UTI: Code(s): N39.0 - Urinary tract infection, site not specified Status: Acute Assessment and Plan: IV Levaquin (2) Hypertension: Code(s): I10 - Essential (primary) hypertension Status: Acute Assessment and Plan: Monitor vital signs (3) Factor V Leiden: Code(s): D68.51 - Activated protein C resistance Status: Acute (4) Chronic deep vein thrombosis (DVT): Code(s): I82.509 - Chronic embolism and thrombosis of unspecified deep veins of unspecified lower extremity Status: Acute Assessment and Plan: Anticoagulation with Coumadin (5) Type 2 diabetes mellitus with diabetic neuropathy: Code(s): E11.40 - Type 2 diabetes mellitus with diabetic neuropathy, unspecified Status: Acute Assessment and Plan: Monitor blood sugar (6) Generalized weakness: Code(s): R53.1 - Weakness Status: Acute Assessment and Plan: PT OT (7) Physical deconditioning: Code(s): R53.81 - Other malaise Status: Acute Assessment and Plan: Discussed child day care center worker about discharge planning DS: Summary Hospital Course Reason for hospitalization: Weakness Hospital Course: Patient is 65-year-old female who presents the emergency department with chief complaint of not being able to get up and needing to switch [facility]. she had a fall and sustained left hip fracture for which she was at [facility] and underwent surgery. she states she recovered well after the surgery and was up and about. She was sent to [facility]. She has not been up since being in the facility and was feeling weak. Patient was found to UTI and was treated with antibiotics during this hospitalization Patient condition improved Patient did not have any focal neurological deficit Case was discussed with child day care center worker and patient will be discharged to care home facility and rehab today Patient is in stable condition and she is agreeable with the plan of discharge, patient does not have any active complaints at the time of discharge. Time Spent with Patient Time attestation: Total time spent providing and/or coordinating discharge services: Time spent: Greater than 30 minutes Exam Const: General: cooperative and no acute distress HENMT: Head: normal to inspection Eyes: General: appearance normal, both eyes and all related structures Neck: Neck: normal visual inspection Chest: Chest palpation & inspection: normal inspection of the chest Resp: Effort & Inspection: normal respiratory effort Cardio: Jugular venous distension: no JVD Rate: regular rate GI: Inspection: normal to inspection and non-distended DS: Data Data Completed and Pending Labs on day of discharge: Labs from last 24 hours 04/10/21 04/10/21 04/10/21 08:05 05:40 05:40 WBC 7.4 RBC 3.49 L Hgb 11.3 L Hct 34.8 L MCV 99.7 MCH 32.4 MCHC 32.5 RDW 16.4 H Plt Count 195 MPV 10.1 Immature Gran % (Auto) 0.7 H Neut % (Auto) 66.1 Lymph % (Auto) 20.4 Brown % (Auto) 9.5 H Eos % (Auto) 2.8 Baso % (Auto) 0.5 Lymph # (Auto) 1.50 Brown # (Auto) 0.7 H Eos # (Auto) 0.2 Baso # (Auto) 0.0 Abs Immat Gran (auto) 0.05 H Absolute Neuts (auto) 4.9 Absolute Nucleated RBC 0.0 Nucleated RBC % 0.0 Sodium 135 L Potassium 4.7 Chloride 97 L Carbon Dioxide 33 H Anion Gap 5 L BUN 36 H Creatinine 1.60 H Estim Creat Clear Calc 45 Estimated GFR 33 L Glucose 277 H POC Capillary Glucose 228 H Calcium 9.8 04/09/21 04/09/21 04/09/21 21:42 17:01 11:40 WBC RBC Hgb Hct MCV MCH MCHC RDW Plt Count MPV Immature Gran % (Auto) Neut % (Auto) Lymph % (Auto) Brown % (Auto) Eos % (Auto) Ba
[2021-04-10 12:22] LABS: Glucose Point of Care 415 mg/dl (65-105)
[2021-04-10] MEDS: INSULIN ASPART (*BKC) 100 UNITS/ML 10 UNITS SUB-Q (12:29)
[2021-04-10 14:50] VITALS: BP 110/48; PULSE 70; RESP 16; TEMP 36.6; O2SAT 97
== END 2021-04-10 16:07 ==
LOC: ANHED 04-05 00:33 → ANH3MED 04-05 00:38
PROVIDERS: Internal Medicine; Admitting Provider Internal Medicine; Emergency Provider Emergency Medicine; Visit Provider Emergency Medicine
DX: N39.0 Urinary tract infection, site not specified (principal); R53.1 Weakness; S72.22XD Displaced subtrochanteric fracture of left femur, subsequent encounter for closed fracture with routine healing; W19.XXXD Unspecified fall, subsequent encounter; D68.51 Activated protein C resistance; E11.42 Type 2 diabetes mellitus with diabetic polyneuropathy; I10 Essential (primary) hypertension; E78.5 Hyperlipidemia, unspecified; M17.0 Bilateral primary osteoarthritis of knee; Z86.718 Personal history of other venous thrombosis and embolism; Z79.01 Long term (current) use of anticoagulants; Z85.3 Personal history of malignant neoplasm of breast; Z79.4 Long term (current) use of insulin
CPT/HCPCS: 36415; 73502; 73552; 80048; 80053; 81001; 82948; 83036; 85025; 85055; 85610; 87077; 87086; 87186; 94640; 96365; 97110; 97162; 97165; 97530; 97535; 99285; A9270; G0378; J0696; J1815